=== PATIENT | female | born 1965 | race Caucasian/White ===

== ENCOUNTER 2018-07-20 10:07 | Day surgery (SDC) | payer OTHER ==
[2018-07-20] MEDS ORDERED: FENTAnyl 50 MCG/ML VIAL (12:03)
[2018-07-20] MEDS ORDERED: MIDAZOLAM 1 MG/ML 2 ML INJ ×2 (12:03)
== END 2018-07-20 13:24 | disposition home or self-care (01) ==
LOC: GIL 10:07
DX: Z12.11 Encounter for screening for malignant neoplasm of colon (principal); K44.9 Diaphragmatic hernia without obstruction or gangrene; K21.9 Gastro-esophageal reflux disease without esophagitis; K64.8 Other hemorrhoids
CPT/HCPCS: 43239; 88305; 88312